=== PATIENT | male | born 1955 | race Two or more races ===

== ENCOUNTER 2023-05-27 19:37 | Emergency (ER) | payer OTHER ==
[~2023-05-27] VITALS: Ht 175.3 cm; Wt 77.1 kg
[2023-05-27] MEDS ORDERED: SYNTHROID88 MCG PO (20:34)
== END 2023-05-27 22:32 | disposition home or self-care (01) ==
LOC: ER 19:37
DX: S61.412A Laceration without foreign body of left hand, initial encounter (principal); W54.0XXA Bitten by dog, initial encounter; Y93.9 Activity, unspecified; Y92.9 Unspecified place or not applicable; Y99.9 Unspecified external cause status

== ENCOUNTER 2023-06-10 10:15 | Emergency (ER) | payer OTHER ==
[~2023-06-10] VITALS: Ht 175.3 cm; Wt 77.1 kg
[~2023-06-10 10:15] MED LIST: SYNTHROID88 MCG PO
== END 2023-06-10 11:40 | disposition home or self-care (01) ==
LOC: ER 10:15
DX: Z48.02 Encounter for removal of sutures (principal); Z91.013 Allergy to seafood